=== PATIENT | female | born 1960 | race Caucasian/White ===

== ENCOUNTER 2017-12-09 07:23 | Emergency (ER) | payer BC ==
[~2017-12-09] VITALS: Ht 167.6 cm; Wt 53.2 kg
[~2017-12-09 07:23] MED LIST: LORTAB 5-325 M1 EACH PO; MINIVELLE1 EACH TD
[2017-12-09] MEDS ORDERED: LAMICTAL100 MG PO (07:56)
[2017-12-09] MEDS ORDERED: ALPRAZOLAM0.5 MG PO (07:57)
[2017-12-09] MEDS ORDERED: DRONABINOL2.5 MG PO (07:57)
[2017-12-09] MEDS ORDERED: DESYREL 150 MG150 MG PO (07:58)
[2017-12-09] MEDS ORDERED: ONDANSETRON HCL8 MG PO (07:59)
[2017-12-09] MEDS ORDERED: VITAMIN B122500 MCG PO (07:59)
[2017-12-09] MEDS ORDERED: PROBIOTIC250 MG PO (07:59)
[2017-12-09] MEDS ORDERED: VITAMIN D-32000 UNI2 PO (08:00)
[2017-12-09] MEDS ORDERED: PIRMELLA1 EACH PO (08:00)
[2017-12-09] MEDS ORDERED: ALPHA LIPOIC A600 MG PO (08:01)
[2017-12-09] MEDS ORDERED: SODIUM CHLORIDE1 G1 PO (08:01)
[2017-12-09] MEDS ORDERED: MINOCYCLINE HC100 MG PO (08:02)
[2017-12-09] MEDS ORDERED: OMNICEF300 MG PO (08:03)
[2017-12-09] MEDS ORDERED: RIFABUTIN150 MG PO (08:03)
[2017-12-09] MEDS ORDERED: MOTRIN800 MG PO (08:25)
[2017-12-09 08:38] VITALS: BP 107/60
== END 2017-12-09 08:42 | disposition home or self-care (01) ==
LOC: EME 07:23
DX: S22.31XA Fracture of one rib, right side, initial encounter for closed fracture (principal); W07.XXXA Fall from chair, initial encounter; F17.200 Nicotine dependence, unspecified, uncomplicated; Z86.19 Personal history of other infectious and parasitic diseases
CPT/HCPCS: 71101; 99281; 99284